=== PATIENT | female | born 1940 | race Caucasian/White ===

== ENCOUNTER 2020-08-23 12:22 | Emergency (ER) | payer MEDICARE, OTHER ==
--- NOTE | 2020-08-23 12:49 | EDM.PDOC ---
ED HPI GENERAL MEDICAL PROBLEM - General Chief Complaint: Cardiovascular Problem Stated Complaint: SOB, CHEST PAIN VIA [facility] Time Seen by Provider: 08/23/20 12:25 Source of Information: Reports: Patient, EMS History Limitations: Reports: No Limitations - History of Present Illness INITIAL COMMENTS - FREE TEXT/NARRATIVE: 79-year-old female, usually healthy has been having chest pain and tightness with shortness of breath intermittent over the last 48 hours. Today she had a persistent band of pressure around her chest with some shortness of breath. She called EMS, she was given 2 doses of sublingual nitro in route as well as full dose oral aspirin which resolved the pain but she was in a Mobitz type II block which eventually converted into a complete heart block by the time she arrived to the hospital. She is however asymptomatic, blood pressure is elevated at 190/100 but she has no pain, no shortness of breath, and pulses in a complete heart block at a rate of 31-35. Pacemakers were applied but not used at this time. Onset: Unknown/Unsure Duration: Day(s): (Has been having waxing and waning pain and pressure for 2 days) Location: Reports: Chest Associated Symptoms: Reports: Chest Pain, Malaise, Shortness of Breath. Denies: Diaphoresis, Fever/Chills, Headaches, Nausea/Vomiting - Related Data Allergies Allergy/AdvReac Type Severity Reaction Status Date / Time No Known Allergies Allergy Verified 08/23/20 12:40 Home Meds: Home Meds Levothyroxine [Synthroid] 100 mcg PO DAILY 08/23/20 [History] Social & Family History - Tobacco Use Tobacco Use Status *Q: Never Tobacco User - Caffeine Use Caffeine Use: Reports: None - Recreational Drug Use Recreational Drug Use: No ED ROS GENERAL - Review of Systems Review Of Systems: See Below Constitutional: Denies: Fever, Chills Respiratory: Reports: Shortness of Breath (Slight chest pressure waxes and wanes, none currently) Cardiovascular: Reports: Chest Pain. Denies: Palpitations GI/Abdominal: Reports: No Symptoms : Reports: No Symptoms Musculoskeletal: Reports: No Symptoms Skin: Reports: No Symptoms Neurological: Reports: No Symptoms Psychiatric: Reports: No Symptoms ED EXAM, GENERAL - Physical Exam Exam: See Below Exam Limited By: No Limitations General Appearance: Alert, No Apparent Distress Eye Exam: Bilateral Eye: Normal Inspection Head: Atraumatic Respiratory/Chest: No Respiratory Distress, Lungs Clear Cardiovascular: Regular Rate, Rhythm, Bradycardia (Significant bradycardia), Extra Beats (Occasional ectopic beats) GI/Abdominal: Soft, Non-Tender Extremities: Other (Just a trace of lower extremity edema) Neurological: Alert, Oriented, No Motor/Sensory Deficits Psychiatric: Normal Affect, Normal Mood Skin Exam: Warm, Dry #1 Interpretation EKG Date: 08/23/20 Rhythm: Other (Complete heart block) Rate (Beats/Min): 32 ST-T: Normal EKG Interpretation Comments: Third-degree heart block with occasional PVCs Course - Vital Signs Last Recorded V/S: Last Vital Signs Temp 97.9 F 08/23/20 12:37 Pulse 30 L 08/23/20 12:56 Resp 15 08/23/20 12:56 BP 194/57 H 08/23/20 12:56 Pulse Ox 97 08/23/20 12:56 - Orders/Labs/Meds Orders: Active Orders 24 hr Category Date Time Status EKG 12 Lead [EK] Routine Ther 08/23/20 12:24 Ordered Labs: Laboratory Tests 08/23/20 08/23/20 08/23/20 Range/Units 12:37 12:37 13:49 WBC 7.9 (4.5-11.0) K/uL RBC 3.94 (3.30-5.50) M/uL Hgb 11.7 L (12.0-15.0) g/dL Hct 37.1 (36.0-48.0) % MCV 94 (80-98) fL MCH 30 (27-31) pg MCHC 32 (32-36) % Plt Count 246 (150-400) K/uL Neut % (Auto) 67 H (36-66) % Lymph % (Auto) 24 (24-44) % Gaston % (Auto) 8 H (2-6) % Eos % (Auto) 1 L (2-4) % Baso % (Auto) 1 (0-1) % Sodium 146 (140-148) mmol/L Potassium 4.4 (3.6-5.2) mmol/L Chloride 109 H (100-108) mmol/L Carbon Dioxide 26 (21-32) mmol/L Anion Gap 15.4 H (5.0-14.0) mmol/L BUN 18 (7-18) mg/dL Creatinine 0.9 (0.6-1.0) mg/dL Est Cr Clr Drug Dosing 47.10 mL/min Estimated GFR (MDRD) > 60 (>60) Glucose 121 H (74-106) mg/dL Calcium 9.2 (8.5-10.1) mg/dL Magnesium 2.2 (1.8-2.4) mg/dL Total Bilirubin 0.6 (0.2-1.0) mg/dL AST 41 H (15-37) U/L ALT 100 H (12-78) U/L Alkaline Phosphatase 46 (46-116) U/L Troponin I 0.056 (0.000-0.056) ng/mL Total Protein 6.4 (6.4-8.2) g/dL Albumin 3.3 L (3.4-5.0) g/dL Globulin 3.1 (2.3-3.5) g/dL Albumin/Globulin Ratio 1.1 L (1.2-2.2) SARS CoV-2 RNA Rapid TISHA Negative Meds: Medications Discontinued Medications Generic Name Dose Route Start Last Admin Trade Name Freq PRN Reason Stop Dose Admin Heparin Sodium (Porcine) 4,000 units 08/23/20 13:25 08/23/20 13:37 Heparin Sodium 5,000 Units/Ml Vial IVPUSH 08/23/20 13:26 4,000 units ONETIME ONE Administration Heparin Sodium (Porcine) Confirm 08/23/20 13:30 Heparin Sodium 5,000 Units/Ml Vial Administered 08/23/20 13:31 Dose 5,000 units .ROUTE .STK-MED ONE Heparin Sodium/Dextrose 25,000 units in 500 mls @ 16 mls/hr 08/23/20 13:30 08/23/20 13:43 Heparin 25,000 Units In D5w 500 Ml IV 800 units/hr TITRATE LORENZO 16 mls/hr Administration Protocol 800 UNITS/HR Heparin Sodium/Dextrose Confirm 08/23/20 13:30 Heparin 25,000 Units In D5w 500 Ml Administered 08/23/20 13:31 Dose 500 mls @ as directed .ROUTE .STK-MED ONE Amiodarone HCl 450 mg/ 250 mls @ 33.333 mls/hr 08/23/20 14:30 08/23/20 14:39 Dextrose/Water IV 1 mg/min ASDIRECTED LORENZO 33.333 mls/hr Administration Protocol 1 MG/MIN Magnesium Sulfate 40 gm in 1,000 mls @ 50 mls/hr 08/23/20 14:30 Magnesium Sulfate In Water 40 Gm/1000 Ml IV ASDIRECTED LORENZO Protocol 2 GM/HR Magnesium Sulfate 1 gm/ Sodium 52 mls @ 200 mls/hr 08/23/20 14:30 08/23/20 14:42 Chloride IV 08/23/20 14:45 200 mls/hr NOW ONE Administration - Re-Assessments/Exams Free Text/Narrative Re-Assessment/Exam: 08/23/20 12:48 Monitor shows complete heart block with occasional PVCs, QRS looks normal other than a minimal right bundle branch block. Other than bradycardia, the patient remained asymptomatic and stable. External pacemaker was applied but not started. CBC, CMP and troponin with magnesium were ordered. 08/23/20 13:34 Patient remained asymptomatic but also remained in third-degree heart block with bradycardia. Put on return 0.056, likely on its way up so she experienced a non-STEMI with damage to the ventricular note. Heparin will be initiated with 4000 unit bolus and 800 units an hour, cardiology was consulted in [place] and Dr. Andrea kindly agreed to accept the patient in route. 08/23/20 14:51 Unfortunately there was a fairly significant delay with EMS arriving for transport, and flying was still not an option. Just prior to leaving she developed a run of V. tach that was symptomatic, it actually looked like torsade on the rhythm strip. An amiodarone drip was started as well as 1 g of magnesium was given. She stabilized and actually returned to a Mobitz type II rhythm before transfer, pulse was still 32. She was asymptomatic on discharge. Departure - Departure Time of Disposition: 14:52 Disposition: DC/Tfer to Other Reason for Transfer *Q: Other Clinical Impression: Non-STEMI (non-ST elevated myocardial infarction), Complete heart block Referrals: PCP,None [Primary Care Provider] - Forms: ED Department Discharge Care Plan Goals: Patient will be urgently transferred to [place] for cardiology evaluation and management of a non-STEMI resulting in third-degree heart block. Sepsis Event Note (ED) - Evaluation Sepsis Screening Result: No Definite Risk - Focused Exam Vital Signs: Vital Signs Temp Pulse Resp BP Pulse Ox 08/23/20 12:56 30 L 15 194/57 H 97 08/23/20 12:37 97.9 F 35 L 24 H 194/67 H 95 - My Orders Last 24 Hours: My Active Orders 08/23/20 12:24 EKG 12 Lead [EK] Routine - Assessment/Plan Last 24 Hours: My Active Orders 08/23/20 12:24 EKG 12 Lead [EK] Routine
[2020-08-23] MEDS ORDERED: Heparin Sodium 5,000 Units/ML Vial IVPUSH ONE (13:25)
[2020-08-23] MEDS ORDERED: Heparin Sodium/D5W 500 ML ONE (13:30)
[2020-08-23] MEDS ORDERED: Heparin Sodium/D5W 25,000 UNITS/500 ML BAG IV SCH (13:30)
[2020-08-23] MEDS ORDERED: Heparin Sodium 5,000 Units/ML Vial ONE (13:30)
[2020-08-23] MEDS ORDERED: Magnesium Sulfate/Water 40 GM/1,000 ML BAG IV SCH (14:30)
== END 2020-08-23 14:56 | disposition other institution (70) ==
LOC: JP.ED 12:22
DX: I21.4 Non-ST elevation (NSTEMI) myocardial infarction (principal); I44.2 Atrioventricular block, complete; Z20.822 Contact with and (suspected) exposure to COVID-19; Z79.899 Other long term (current) drug therapy; Z79.82 Long term (current) use of aspirin
CPT/HCPCS: 36415; 80053; 83735; 84484; 85025; 93005; 96365; 96374; 96375; 99285; J0282; J1644; J3475; J7060; U0002; 93010